=== PATIENT | female | born 1995 | race African-American/Black ===

== ENCOUNTER 2017-07-07 19:58 | Emergency (ER) | payer OTHER ==
[2017-07-07 20:01] VITALS: BP 129/61; PULSE 75; RESP 18; TEMP 98.9; O2SAT 99
--- NOTE | 2017-07-07 20:45 | PD ---
HPI Chief Complaint: Cold / Flu Symptoms Time Seen by Provider: 20:32 Travel History International Travel<30 days: No Contact w/Intl Traveler<30days: No Traveled to known affect area: No History of Present Illness HPI 21 -year-old female presents to the ED for evaluation of 1 week history of sinus congestion, clear rhinorrhea, nonproductive cough. She states that occasionally when she blows her nose she has bilateral ear pain. She also endorses diminished hearing. She denies headaches, dizziness, sneezing, fevers , chills, nausea, vomiting. She endorses several sick contacts. She states that she works at a daycare. She denies history of seasonal or environmental allergies. She did not receive this years flu vaccine. She treated with some [id number] medications but is unsure what they were. She states that she sought treatment today because "I'm sick of it." PFSH Past Medical History Medical History: Denies Significant Hx Tetanus Vaccination: < 5 Years Influenza Vaccination: No ?: Not LMP: 06/26/17 Past Surgical History Surgical History: No Previous Surgery Social History Alcohol Use: No Tobacco Use: No Substance Use: No Allergies-Medications (Allergen,Severity, Reaction): Coded Allergies: No Known Allergies (Unverified , 07/07/17) Reported Meds & Prescriptions Reported Meds & Active Scripts Active Fluticasone Nasal Freedom 50 Mcg/Act Naspr 50 Mcg EACH NARE BID 7 Days 50 mcg/spray Marlin-D 24 Hour Allergy (Fexofenadine-Pseudoephedrine ER 24 HR) 180-240 Bhavani 1 Tab PO DAILY 10 Days Review of Systems Except as stated in HPI: all other systems reviewed are Neg Physical Exam Narrative GENERAL: Well-nourished, well-developed , nontoxic-appearing female in no acute distress. SKIN: Warm and dry. HEAD: Normocephalic. Atraumatic. EYES: No scleral icterus. No injection or drainage. PERRLA. EOMI. ENT: Pearly russo tympanic membranes bilaterally. Serous effusion on the left. Nasal mucosa is moist. No tenderness to palpation of the facial sinuses. Oropharynx without erythema, edema or exudate. NECK: Supple, trachea midline. No JVD or lymphadenopathy. CARDIOVASCULAR: Regular rate and rhythm without murmurs, gallops, or rubs. RESPIRATORY: Breath sounds clear and equal bilaterally. No accessory muscle use. GASTROINTESTINAL: Abdomen soft, non-tender, nondistended. + Bowel sounds MUSCULOSKELETAL: No cyanosis, or edema. BACK: Nontender without obvious deformity. No CVA tenderness. Data Data Last Documented VS Vital Signs Date Time Temp Pulse Resp B/P (MAP) Pulse Ox O2 Delivery O2 Flow Rate FiO2 07/07/17 20:01 98.9 75 18 129/61 (83) 99 Room Air Orders Orders Ed Discharge Order (07/07/17 20:48) MDM Medical Decision Making Medical Screen Exam Complete: Yes Emergency Medical Condition: Yes Differential Diagnosis Viral syndrome versus sinusitis versus pharyngitis versus influenza versus seasonal allergies versus other Narrative Course 21 -year-old female presents to the ED for evaluation of 1 week history of sinus congestion, clear rhinorrhea, nonproductive cough. She states that occasionally when she blows her nose she has bilateral ear pain. She also endorses diminished hearing. She denies headaches, dizziness, sneezing, fevers , chills, nausea, vomiting. She endorses several sick contacts. She states that she works at a daycare. She denies history of seasonal or environmental allergies. She did not receive this years flu vaccine. She treated with some [id number] medications but is unsure what they were. She states that she sought treatment today because "I'm sick of it." Vitals reviewed. On arrival to the room the patient is laughing and chatting with 2 friends. She is nontoxic appearing. ENT exam reveals a left-sided serous effusion the ear and very mild posterior oropharyngeal edema. No tenderness to palpation of the facial sinuses. This is viral syndrome with sinus congestion. Patient is prescribed Marlin-D and fluticasone nasal spray. She is instructed to use the medications for 10 days, follow-up with her primary care provider. She is stable and discharged home. Diagnosis Primary Impression: Nasal sinus congestion Additional Impression: Viral syndrome Referrals: Primary Care Physician Patient Instructions: General Instructions, Viral Syndrome (ED) Additional Instructions: Rest, hydrate. Push fluids such as sports drinks, Pedialyte, popsicles, clear broth. Continue with symptomatic treatment. Increase handwashing frequently to avoid the spread of the virus to other family members and the community. Disinfect commonly touched surfaces such as light switches, microwaves, remote controls. Replace toothbrush at the end of this illness. Follow-up with the primary care provider this week. Return to the ED for any urgent or emergent medical condition. Med/Other Pt SpecificInfo: Prescription(s) given Scripts Fluticasone Nasal Freedom (Fluticasone Nasal Freedom) 50 Mcg/Act Naspr 50 MCG EACH NARE BID for Allergy Management for 7 Days, #1 BOTTLE 0 Refills 50 mcg/spray Prov: Karlo Lopez MD 07/07/17 Fexofenadine-Pseudoephedrine ER 24 HR (Marlin-D 24 Hour Allergy) 180-240 Bhavani 1 TAB PO DAILY for Allergy Management for 10 Days, #10 TAB 0 Refills Prov: Karlo Lopez MD 07/07/17 Disposition: 01 DISCHARGE HOME Condition: Stable Samreen Lowery Jul 07, 2017 20:45
[2017-07-07] MEDS ORDERED: FLUT50SP EACH NARE (20:47)
[2017-07-07] MEDS ORDERED: FEXO1TAB97 PO (20:47)
== END 2017-07-07 21:00 | disposition home or self-care (01) ==
LOC: NEPK 19:58
DX: B34.9 Viral infection, unspecified (principal)
CPT/HCPCS: 99283